=== PATIENT | female | born 1975 | race American Indian/Alaskan Native ===

== ENCOUNTER 2016-12-17 10:54 | Emergency (ER) | payer SELFPAY ==
[2016-12-17 11:19] VITALS: BP 137/88
[2016-12-17 11:47] LABS: Basophils % (Auto) 0.5 % (0.0-1.8); Eosinophils % (Auto) 1.1 % (0.0-4.3); Hematocrit 34.3 % (30.3-42.9); Hemoglobin 10.7 gm/dl (10.1-14.3); Mean Corpuscular HGB Conc 31 % (30-34); Platelet Count 328 K/mm3 (140-440); Red Blood Count 5.11 M/mm3 (3.65-5.03); Red Cell Distribution Width 18.2 % (13.2-15.2); White Blood Count 6.8 K/mm3 (4.5-11.0)
[2016-12-17 11:48] LABS: Mean Corpuscular Hemoglobin 21 pg (28-32); Mean Corpuscular Volume 67 fl (79-97)
[2016-12-17 12:18] LABS: Alanine Aminotransferase 12 units/L (7-56); Albumin 4.3 g/dL (3.9-5); Albumin/Globulin Ratio 1.2 %; Alkaline Phosphatase 76 units/L (35-129); Anion Gap 19 mmol/L; BUN/Creatinine Ratio 11.11; Bilirubin,Total 0.4 mg/dL (0.1-1.2); Blood Urea Nitrogen 10 mg/dL (7-17); Calcium 9.3 mg/dL (8.4-10.2); Carbon Dioxide 24 mmol/L (22-30); Chloride 93.5 mmol/L (98-107); Glucose 316 mg/dL (65-100); Lipase 75 units/L (13-60); Potassium 4.8 mmol/L (3.6-5.0); Sodium 132 mmol/L (137-145)
[2016-12-17 13:23] LABS: Bilirubin,Urine NEG (Negative); Blood,Urine NEG (Negative); Ketones,Urine TR mg/dL (Negative); Leukocyte Esterase,Urine NEG (Negative); Mucus,Urine FEW /HPF; Nitrite,Urine NEG (Negative); Protein,Urine <15 mg/dL mg/dL (Negative); Urobilinogen,Urine < 2.0 mg/dL (<2.0)
--- NOTE | 2016-12-19 15:55 | ED Elopement Review ---
ED Pt Elopement review - Results review Lab results: Laboratory Tests 12/17/16 12/17/16 12/17/16 11:38 11:38 12:57 WBC 6.8 RBC 5.11 H Hgb 10.7 Hct 34.3 MCV 67 L MCH 21 L MCHC 31 RDW 18.2 H Plt Count 328 Lymph % (Auto) 32.2 Stone % (Auto) 7.6 H Eos % (Auto) 1.1 Baso % (Auto) 0.5 Lymph # 2.2 Stone # 0.5 Eos # 0.1 Baso # 0.0 Seg Neutrophils % 58.6 Seg Neutrophils # 4.0 Sodium 132 L Potassium 4.8 Chloride 93.5 L Carbon Dioxide 24 Anion Gap 19 BUN 10 Creatinine 0.9 Estimated GFR > 60 BUN/Creatinine Ratio 11.11 Glucose 316 H Calcium 9.3 Total Bilirubin 0.4 AST 15 ALT 12 Alkaline Phosphatase 76 Total Protein 8.0 Albumin 4.3 Albumin/Globulin Ratio 1.2 Lipase 75 H Urine Color Straw Urine Turbidity Clear Urine pH 5.0 Ur Specific [place] 1.024 Urine Protein <15 mg/dl Urine Glucose (UA) >=500 Urine Ketones Tr Urine Blood Neg Urine Nitrite Neg Urine Bilirubin Neg Urine Urobilinogen < 2.0 Ur Leukocyte Esterase Neg Urine WBC (Auto) 2.0 Urine RBC (Auto) 2.0 U Epithel Cells (Auto) 7.0 Urine Mucus Few - Call Back decision Pt Call Back Decision: No action required
== END 2016-12-18 02:45 | disposition left against medical advice (07) ==
LOC: ED 10:54
DX: R10.9 Unspecified abdominal pain (principal); Z53.21 Procedure and treatment not carried out due to patient leaving prior to being seen by health care provider
CPT/HCPCS: 36415; 80053; 81001; 83690; 85025

== ENCOUNTER 2017-07-24 20:25 | Emergency (ER) | payer SELFPAY ==
[2017-07-24 21:38] LABS: Basophils % (Auto) 0.5 % (0.0-1.8); Eosinophils % (Auto) 2.1 % (0.0-4.3); Hematocrit 30.8 % (30.3-42.9); Hemoglobin 9.7 gm/dl (10.1-14.3); Mean Corpuscular HGB Conc 31 % (30-34); Mean Corpuscular Volume 71 fl (79-97); Platelet Count 345 K/mm3 (140-440); Red Blood Count 4.35 M/mm3 (3.65-5.03); Red Cell Distribution Width 17.3 % (13.2-15.2); White Blood Count 5.3 K/mm3 (4.5-11.0)
[2017-07-24 21:41] LABS: Mean Corpuscular Hemoglobin 22 pg (28-32)
[2017-07-24 21:46] LABS: Alanine Aminotransferase 11 units/L (7-56); Albumin/Globulin Ratio 1.3 %; Alkaline Phosphatase 55 units/L (35-129); Anion Gap 18 mmol/L; Blood Urea Nitrogen 8 mg/dL (7-17); Calcium 8.6 mg/dL (8.4-10.2); Carbon Dioxide 22 mmol/L (22-30); Chloride 102.4 mmol/L (98-107); Glucose 228 mg/dL (65-100); Sodium 138 mmol/L (137-145); Total Protein 7.2 g/dL (6.3-8.2)
[2017-07-24 22:10] LABS: Bilirubin,Urine NEG (Negative); Blood,Urine NEG (Negative); Ketones,Urine TR mg/dL (Negative); Leukocyte Esterase,Urine NEG (Negative); Mucus,Urine FEW /HPF; Nitrite,Urine NEG (Negative); Protein,Urine <15 mg/dL mg/dL (Negative); Urobilinogen,Urine < 2.0 mg/dL (<2.0)
--- NOTE | 2017-07-25 05:53 | Ultrasound Report ---
FINAL REPORT EXAM: US TRANSVAGINAL HISTORY: pelvic pain COMPARISONS: None. FINDINGS: Transvaginal grayscale, color and spectral Doppler ultrasound evaluation of the pelvis Posterior vaginal simple appearing cysts measure up to 2 cm in greatest dimension. Anteverted uterus measures 8.5 x 5.2 x 6.8 cm. Nabothian cysts are noted. Anterior transmural uterine fibroid measures up to around 4 cm in greatest dimension. Homogeneous endometrium measures up to millimeters in thickness. Trace free fluid in the pelvis. The ovaries are sonographically unremarkable with normal spectral Doppler waveforms and measure 3.4 x 1.7 x 2.3 cm on the right and 2.7 x 2.1 x 2 cm on the left. IMPRESSION: Posterior vaginal simple appearing cysts may originate in the Bartholin gland and measure up to 2 cm. Transmural uterine fibroid measures up to 4 cm.
--- NOTE | 2017-07-25 05:54 | Ultrasound Report ---
FINAL REPORT EXAM: US PELVIS DUPLEX DOPPLER COMP HISTORY: pelvic pain COMPARISONS: None. FINDINGS: Transabdominal grayscale, color and spectral Doppler ultrasound evaluation of the pelvis Posterior vaginal simple appearing cysts measure up to 2 cm in greatest dimension and are seen to better advantage on transvaginal ultrasound. Anteverted uterus measures 8.5 x 5.2 x 6.8 cm. Anterior transmural uterine fibroid measures up to around 4 cm. In greatest dimension. Homogeneous endometrium measures up to millimeters in thickness. Trace free fluid in the pelvis. The ovaries are better demonstrated on transvaginal ultrasound of the same date. IMPRESSION: Posterior vaginal simple appearing cysts may originate in the Bartholin gland and measure up to 2 cm. Transmural uterine fibroid measures up to 4 cm.
--- NOTE | 2017-07-25 05:56 | Emergency Department Report ---
HPI - General Chief Complaint: Abdominal Pain Time Seen by Provider: 07/25/17 03:18 - HPI HPI: This is a 41 year-old female presents the emergency department with complaint of some pelvic discomfort over the past 9 days, as well as vaginal bleeding of these 9 days and what appears to be an extended menstrual cycle. She is been getting this pain intermittently over the past year and mostly happens during the menstrual cycles. The past 2 menstrual cycles she has had prolonged bleeding. She has not taken anything for her symptoms by presentation. She denies any dysuria, nausea, vomiting, diarrhea, fever. She does not currently have an [facility]. She has a past medical history of non- insulin-dependent diabetes. No recent travel or sick contacts at home. ED Past Medical Hx - Past Medical History Previous Medical History?: No - Surgical History Past Surgical History?: Yes Additional Surgical History: TUBAL LIGATION - Social History Smoking Status: Never Smoker Substance Use Type: None - Medications Home Medications: Home Medications Medication Instructions Recorded Confirmed Last Taken Type Cephalexin [Keflex] 500 mg PO Q8HR #30 cap 03/11/16 Unknown Rx Ibuprofen [Motrin] 800 mg PO Q8HR PRN #15 tablet 03/11/16 Unknown Rx Ranitidine HCl [Zantac 300 MG TAB] 300 mg PO QPM #20 tablet 10/17/16 Unknown Rx HYDROcodone/APAP 5-325 [Marion 1 each PO Q6HR PRN #8 tablet 07/25/17 Unknown Rx 5-325 mg TAB] ED Review of Systems ROS: Stated complaint: VAGINAL BLEEDING Other details as noted in HPI Comment: All other systems reviewed and negative Constitutional: denies: chills, fever Eyes: denies: eye pain, eye discharge, vision change ENT: denies: ear pain, throat pain Respiratory: denies: cough, shortness of breath, wheezing Cardiovascular: denies: chest pain, palpitations Gastrointestinal: abdominal pain. denies: nausea, vomiting Genitourinary: denies: dysuria, discharge Musculoskeletal: denies: back pain, joint swelling, arthralgia Skin: denies: rash, lesions Neurological: denies: headache, weakness, paresthesias Physical Exam - Physical Exam Vital Signs: Vital Signs 07/24/17 20:58 Temperature 98.5 F Pulse Rate 70 Respiratory 20 Rate Blood Pressure 138/84 O2 Sat by Pulse 98 Oximetry Physical Exam: GENERAL: The patient is well-developed well-nourished. HENT: Normocephalic. Atraumatic. Patient has moist mucous membranes. EYES: Extraocular motions are intact. Pupils equal reactive to light bilaterally. NECK: Supple. Trachea is midline. CHEST/LUNGS: Clear to auscultation. There is no respiratory distress noted. HEART/CARDIOVASCULAR: Regular. There is no tachycardia. There is no gallop rub or murmur. ABDOMEN: Abdomen is soft, nontender. Patient has normal bowel sounds. There is no abdominal distention. SKIN: Skin is warm and dry. NEURO: The patient is awake, alert, and oriented. The patient is cooperative. The patient has no focal neurologic deficits. The patient has normal speech. MUSCULOSKELETAL: There is no tenderness or deformity. There is no limitation range of motion. There is no evidence of acute injury. ED Course Vital Signs 07/24/17 20:58 Temperature 98.5 F Pulse Rate 70 Respiratory 20 Rate Blood Pressure 138/84 O2 Sat by Pulse 98 Oximetry ED Medical Decision Making - Lab Data Result diagrams: 07/24/17 21:04 07/24/17 21:04 - Radiology Data Radiology results: report reviewed, image reviewed interpreted by me: Abdominal x-ray shows nonspecific nonobstructive bowel gas and some stool. EXAM: US TRANSVAGINAL HISTORY: pelvic pain COMPARISONS: None. FINDINGS: Transvaginal grayscale, color and spectral Doppler ultrasound evaluation of the pelvis Posterior vaginal simple appearing cysts measure up to 2 cm in greatest dimension. Anteverted uterus measures 8.5 x 5.2 x 6.8 cm. Nabothian cysts are noted. Anterior transmural uterine fibroid measures up to around 4 cm in greatest dimension. Homogeneous endometrium measures up to millimeters in thickness. Trace free fluid in the pelvis. The ovaries are sonographically unremarkable with normal spectral Doppler waveforms and measure 3.4 x 1.7 x 2.3 cm on the right and 2.7 x 2.1 x 2 cm on the left. IMPRESSION: Posterior vaginal simple appearing cysts may originate in the Bartholin gland and measure up to 2 cm. Transmural uterine fibroid measures up to 4 cm. - Medical Decision Making 41-year-old female presents with some lower abdominal and/or pelvic discomfort going on for the past 9 days, along with her prolonged menstrual cycle. This is been happening intermittently over the past year. Labs are mostly unremarkable and do not show any etiology of her symptoms. She does not have any vaginal discharge or dysuria. Vital signs stable including being afebrile. Transvaginal Doppler ultrasound does not show any signs of torsion but there is a fibroid of 4 cm and possible Bartholin gland cyst. She was given multiple referrals for [facility]. She will return to the ER with any worsening of her symptoms or any acute distress. - Differential Diagnosis , UTI, fibroid Critical Care Time: No Critical care attestation.: If time is entered above; I have spent that time in minutes in the direct care of this critically ill patient, excluding procedure time. ED Disposition Clinical Impression: Dysmenorrhea Menorrhagia Qualifiers: Menorrahagia type: with onset of menstrual periods Qualified Code(s): N92.2 - Excessive menstruation at puberty Fibroid Qualifiers: Uterine leiomyoma location: unspecified location Qualified Code(s): D25.9 - Leiomyoma of uterus, unspecified Disposition: TO HOME OR SELFCARE Is pt being admited?: No Condition: Stable Instructions: Dysfunctional Uterine Bleeding (ED), Uterine Fibroids (ED), Menorrhagia (ED) Additional Instructions: Please follow up with a primary care physician as well as an [facility]. Return to the emergency Department with any worsening of her symptoms or any acute distress. You have been prescribed a medication that is sedating and therefore should not be taken prior to driving, working, and responsible for children and in no way should be mixed with alcohol of any quantity.r Prescriptions: HYDROcodone/APAP 5-325 [Marion 5-325 mg TAB] 1 each PO Q6HR PRN #8 tablet PRN Reason: Pain Referrals: PRIMARY CARE [Primary Care Provider] - 3-5 Days [facility] [Provider Group] - 3-5 Days [facility] [Provider Group] - 3-5 Days [facility] [Provider Group] - 3-5 Days Time of Disposition: 06:14
--- NOTE | 2017-07-25 06:05 | XRay Report ---
FINAL REPORT EXAM: XR ABDOMEN 2V HISTORY: Abd pain TECHNIQUE: Upright and supine views of the abdomen and pelvis PRIORS: None. FINDINGS: No pneumoperitoneum. Bowel gas pattern is nonobstructive. No pathologic calcification or fracture. IMPRESSION: No acute finding. Consider additional imaging including CT for more sensitive and specific evaluation of abdominal pain as warranted.
[2017-07-25 06:43] VITALS: BP 140/90
== END 2017-07-25 06:43 | disposition home or self-care (01) ==
LOC: ED 20:25
DX: D25.9 Leiomyoma of uterus, unspecified (principal); N92.0 Excessive and frequent menstruation with regular cycle; N94.6 Dysmenorrhea, unspecified
CPT/HCPCS: 36415; 74020; 76830; 80053; 81001; 84703; 85025; 93975; 99284